=== PATIENT | female | born 1990 | race Caucasian/White ===

== ENCOUNTER 2021-05-12 14:40 | Emergency (ER) | payer OTHER ==
[~2021-05-12 14:40] MED LIST: AUGMENTIN 875-1 EACH PO; MEDROL 4MG DOSEP4 MG PO; ZPAK PO
[2021-05-12] MEDS ORDERED: AUGMENTIN 875-1 EACH PO (16:20)
[2021-05-12] MEDS ORDERED: MOTRIN600 MG PO (16:20)
== END 2021-05-12 16:35 | disposition home or self-care (01) ==
LOC: FER 14:40
DX: K02.9 Dental caries, unspecified (principal); F17.210 Nicotine dependence, cigarettes, uncomplicated
CPT/HCPCS: 99283